=== PATIENT | male | born 1965 | race Caucasian/White ===

== ENCOUNTER 2021-04-14 23:54 | Emergency (ER) | payer MEDICARE ==
[2021-04-15 01:06] LABS: HEMOGLOBIN 14.2 gm/dl (14.0-17.5); RED BLOOD COUNT 4.26 M/UL (4.20-5.50); WHITE BLOOD COUNT 5.1 K/UL (4.5-11.0)
[2021-04-15 01:22] LABS: BUN/CREATININE RATIO 18 (0-10)
== END 2021-04-15 03:20 | disposition home or self-care (01) ==
LOC: ER1 23:54
PROVIDERS: Emergency Medicine
DX: R60.0 Localized edema (principal); M79.89 Other specified soft tissue disorders; I10 Essential (primary) hypertension; I73.9 Peripheral vascular disease, unspecified; F17.200 Nicotine dependence, unspecified, uncomplicated
CPT/HCPCS: 73562; 80053; 81001; 83735; 83880; 85025; 85379; 99284

== ENCOUNTER → 2021-04-29 | Outpatient (CLI) | payer MEDICARE | LOC: US 11:00 | DX: R22.43 Localized swelling, mass and lump, lower limb, bilateral (principal) | CPT/HCPCS: 93970 ==